=== PATIENT | male | born 1995 | race Caucasian/White ===

== ENCOUNTER 2019-03-08 07:29 | Emergency (ER) | payer OTHER ==
[2019-03-08] MEDS ORDERED: Lidocaine 1% w/Epinephrine 1:100K 20 ML VIAL ONE ×2 (07:45→07:56)
--- NOTE | 2019-03-08 09:05 | RAD ---
LEFT FOOT 3 VIEWS: HISTORY: Injury. COMPARISON: None. FINDINGS: There is an intraarticular fracture through the medial margin base proximal phalanx third toe with mi ld comminution. There is adjacent soft tissue swelling. Lisfranc interval appears to be maintained. IMPRESSION: Intraarticular fracture through the base proximal phalanx middle toe at the metatarsophalangeal joint . POS: CET
== END 2019-03-08 08:30 | disposition home or self-care (01) ==
LOC: ERS 07:29
DX: S91.312A Laceration without foreign body, left foot, initial encounter (principal); M25.572 Pain in left ankle and joints of left foot; W20.8XXA Other cause of strike by thrown, projected or falling object, initial encounter; F17.210 Nicotine dependence, cigarettes, uncomplicated
CPT/HCPCS: 12001

== ENCOUNTER 2019-03-14 12:01 | Emergency (ER) | payer OTHER ==
[2019-03-14] MEDS ORDERED: HYDROcodone/Acetaminophen 5/325 mg Tablet ONE (13:56)
--- NOTE | 2019-03-14 14:09 | RAD ---
EXAM: 3 views of the left foot HISTORY: Foot pain after injury one week ago COMPARISON: 03/08/2019 FINDINGS: 3 views of the left foot shows a fracture of the base of the proximal phalanx of the third toe which is intra-articular. There is approximately 10% involvement of the joint space of the metacarpophalangeal joint. Mild soft tissue swelling is seen. No degenerative changes are present. IMPRESSION: Third toe proximal phalanx fracture
[2019-03-14] MEDS ORDERED: Cefepime 2 GM VIAL ONE (15:20)
[2019-03-14] MEDS ORDERED: Clindamycin/D5W 900 mg/50 ml Premix Bag ONE (15:21)
== END 2019-03-14 15:20 | disposition home or self-care (01) ==
LOC: ERS 12:01
DX: S92.512A Displaced fracture of proximal phalanx of left lesser toe(s), initial encounter for closed fracture (principal); S91.312D Laceration without foreign body, left foot, subsequent encounter; F17.210 Nicotine dependence, cigarettes, uncomplicated
CPT/HCPCS: J0692; J3490